=== PATIENT | female | born 1970 | race African-American/Black ===

== ENCOUNTER 2016-10-27 14:15 | Emergency (ER) | payer OTHER ==
[~2016-10-27] VITALS: Ht 157.5 cm; Wt 74.8 kg
[~2016-10-27 14:15] MED LIST: HYDROCHLOROTHIA25 M1 PO; IBUPROFEN 800800 MG PO; IRON325 M1; VITAMIN D400 UNI2
[2016-10-27] MEDS ORDERED: NAPROSYN500 MG PO (15:28)
[2016-10-27 15:35] VITALS: BP 153/96
== END 2016-10-27 15:56 | disposition home or self-care (01) ==
LOC: ER 14:15
DX: S70.02XA Contusion of left hip, initial encounter (principal); I10 Essential (primary) hypertension; W10.8XXA Fall (on) (from) other stairs and steps, initial encounter; Y93.89 Activity, other specified; Y92.89 Other specified places as the place of occurrence of the external cause; Y99.8 Other external cause status